=== PATIENT | female | born 1935 | race Hispanic/Latino ===

== ENCOUNTER → 2018-08-22 | Outpatient (CLI) | payer MEDICARE ==
[~2018-08-22] MED LIST: BENZ-17 PO; CELE-84 PO; DILT240C3 PO; LEVO500T89 PO; LOSA50TA64 PO; OMEP20CA10 PO; OSEL75 PO; POTA10TA14 PO; SIMV10TA6 PO
== END | disposition home or self-care (01) ==
LOC: SHCH 13:03
PROVIDERS: ATTEND Internal Medicine Cardiovascular Disease
DX: I11.9 Hypertensive heart disease without heart failure (principal); I35.8 Other nonrheumatic aortic valve disorders; R07.9 Chest pain, unspecified; E78.2 Mixed hyperlipidemia
CPT/HCPCS: 71046; 93306

== ENCOUNTER → 2018-08-24 | Outpatient (CLI) | payer MEDICARE ==
[~2018-08-24] VITALS: Ht 157.5 cm; Wt 55.3 kg
[~2018-08-24] MED LIST changes: +REGADENOSON 0.4 MG/5 ML PF SYG IVP ONE; +REGADENOSON 0.4 MG/5 ML PF SYG IVP SCH
== END | disposition home or self-care (01) ==
LOC: SHCH 08:43
PROVIDERS: ATTEND Internal Medicine Cardiovascular Disease
DX: E78.2 Mixed hyperlipidemia (principal); I51.0 Cardiac septal defect, acquired
CPT/HCPCS: 78452; 93017; 96374; A9500 ×2; J2785

== ENCOUNTER 2018-08-26 22:25 | Emergency (ER) | payer MEDICARE ==
[~2018-08-26 22:25] MED LIST changes: -REGADENOSON 0.4 MG/5 ML PF SYG IVP ONE; -REGADENOSON 0.4 MG/5 ML PF SYG IVP SCH
[2018-08-26 23:08] LABS: BASOPHILS % (AUTO) 0.5 % (0.0-5.0); EOSINOPHILS % (AUTO) 2.7 % (0.0-8.0); HEMATOCRIT 44.7 % (36-48); LYMPHOCYTES % (AUTO) 23.9 % (21.0-51.0); MEAN CORPUSCULAR HEMOGLOBIN 29.7 pg (27.0-33.0); MEAN CORPUSCULAR HGB CONC 33.3 g/dL (32.0-36.0); MEAN CORPUSCULAR VOLUME 89.2 fL (79-99); MONOCYTES % (AUTO) 9.7 % (3.0-13.0); NEUTROPHILS % (AUTO) 63.2 % (40.0-77.0); NUCLEATED RED BLOOD CELLS 0.1 % (0.0-0.19); PLATELET COUNT (AUTO) 213 K/uL (130-400); RED BLOOD CELL COUNT(AUTO) 5.01 MIL/uL (4.00-5.50); RED CELL DISTRIBUTION WIDTH 13.3 % (11.0-15.5); WHITE BLOOD COUNT (AUTO) 6.7 K/uL (4.8-10.8)
[2018-08-26 23:10] LABS: CREATININE 0.7 mg/dL (0.5-1.5); POTASSIUM 3.9 mmol/L (3.5-5.1)
[2018-08-26] MEDS ORDERED: LIDOCAINE HCL 2% JELLY 5 ML ONE (23:13)
[2018-08-26 23:15] LABS: ALBUMIN 3.2 g/dL (3.5-5.0); BILIRUBIN,TOTAL 0.2 mg/dL (0.2-1.0); TOTAL PROTEIN, SERUM 6.5 g/dL (6.0-8.3)
[2018-08-26 23:27] LABS: INR 0.89 (0.85-1.15); PARTIAL THROMBOPLASTIN TIME 22.6 SEC (26.3-35.5); PROTHROMBIN TIME 9.4 SEC (9.6-11.6)
[2018-08-26 23:43] LABS: APPEARANCE,URINE Clear (CLEAR); BILIRUBIN,URINE Negative (NEGATIVE); COLOR,URINE Yellow (YELLOW); GLUCOSE, URINE (UA) Negative (NEGATIVE); KETONES,URINE Negative (NEGATIVE); LEUKOCYTE ESTERASE ,URINE Negative (NEGATIVE); NITRATE,URINE Negative (NEGATIVE); OCCULT BLOOD,URINE Negative (NEGATIVE); PROTEIN,URINE Negative (NEGATIVE)
== END 2018-08-27 00:15 | disposition home or self-care (01) ==
LOC: EDH 22:25
DX: S00.03XA Contusion of scalp, initial encounter (principal); J45.909 Unspecified asthma, uncomplicated; I10 Essential (primary) hypertension; E78.5 Hyperlipidemia, unspecified; W18.39XA Other fall on same level, initial encounter; Y93.01 Activity, walking, marching and hiking; Y92.89 Other specified places as the place of occurrence of the external cause; Y99.8 Other external cause status
CPT/HCPCS: 36415; 70450; 72125; 80053; 81003; 82550; 84484; 85025; 85610; 85730

== ENCOUNTER 2018-09-25 07:08 | Day surgery (SDC) | payer MEDICARE ==
[2018-09-24 11:21] LABS: BASOPHILS % (AUTO) 0.5 % (0.0-5.0); HEMATOCRIT 45.2 % (36-48); LYMPHOCYTES % (AUTO) 35.2 % (21.0-51.0); MEAN CORPUSCULAR HEMOGLOBIN 29.6 pg (27.0-33.0); MEAN CORPUSCULAR VOLUME 89.8 fL (79-99); MONOCYTES % (AUTO) 11.5 % (3.0-13.0); NEUTROPHILS % (AUTO) 48.8 % (40.0-77.0); PLATELET COUNT (AUTO) 211 K/uL (130-400); RED BLOOD CELL COUNT(AUTO) 5.03 MIL/uL (4.00-5.50); RED CELL DISTRIBUTION WIDTH 13.5 % (11.0-15.5); WHITE BLOOD COUNT (AUTO) 4.8 K/uL (4.8-10.8)
[2018-09-24 11:25] LABS: APPEARANCE,URINE CLEAR (CLEAR); BILIRUBIN,URINE NEGATIVE (NEGATIVE); COLOR,URINE YELLOW (YELLOW); GLUCOSE, URINE (UA) NEGATIVE (NEGATIVE); KETONES,URINE 5 mg/dL (NEGATIVE); LEUKOCYTE ESTERASE ,URINE MODERATE (NEGATIVE); NITRATE,URINE NEGATIVE (NEGATIVE); OCCULT BLOOD,URINE NEGATIVE (NEGATIVE); PROTEIN,URINE NEGATIVE (NEGATIVE)
[2018-09-24 11:30] VITALS: BP 165/73
[2018-09-24 11:36] LABS: BACTERIA,URINE Few /HPF (None Seen); RBC,URINE 0-1 /HPF (0-1); SQUAMOUS EPITHELIAL CELL,UR 0-2 /HPF (0-2)
[2018-09-24 11:37] LABS: CREATININE 0.7 mg/dL (0.5-1.5); POTASSIUM 4.3 mmol/L (3.5-5.1)
[2018-09-24 11:41] LABS: INR 0.91 (0.85-1.15); PROTHROMBIN TIME 9.6 SEC (9.6-11.6)
--- NOTE | 2018-09-24 13:12 | NUR ---
LABS FAXED AND REPORTED ABNORMAL UA TO DR. AMIRAH MERCADO ASST. SHE WILL INFORM DR. MACARIO.
--- NOTE | 2018-09-24 16:46 | NUR ---
ALBERTO KONG LVN ON PHONE. PER DR. MACARIO, PROCEED WITH PLANNED PROCEDURE. NO ORDERS RECEIVED.
[~2018-09-25] VITALS: Ht 152.4 cm; Wt 54.4 kg
[2018-09-25] VITALS (12 sets, daily range): BP systolic 126–173; BP diastolic 48–76
[~2018-09-25 07:08] MED LIST changes: +AMLO5TAB9 PO; +ASPI-555 PO; +ATOR20TA65 PO; -BENZ-17 PO; -DILT240C3 PO; -LEVO500T89 PO; +METO-408 PO; +OMEP-50 PO; -OMEP20CA10 PO; -OSEL75 PO; +POTA10CA44 PO; -POTA10TA14 PO; -SIMV10TA6 PO
[2018-09-25] MEDS ORDERED: SODIUM CHLORIDE 0.9% 1000ML 1,000 ML IV SCH ×2 (08:00→13:18)
[2018-09-25] MEDS ORDERED: HEPARIN SODIUM 1000UNIT/ML 10ML VIAL ONE (12:11)
[2018-09-25] MEDS ORDERED: VERAPAMIL HCL 2.5 MG/ML VIAL ONE (12:11)
[2018-09-25] MEDS ORDERED: IOHEXOL 350 MG/ML 100ML INFUS..BTL IV ONE (12:11)
[2018-09-25] MEDS ORDERED: NITROGLYCERIN 5 MG/ML 10 ML VIAL IV ONE (12:11)
[2018-09-25] MEDS ORDERED: LIDOCAINE HCL 2% 20ML ONE (12:11)
[2018-09-25] MEDS ORDERED: IOHEXOL-350 50ML VIAL IV ONE ×2 (12:11→13:07)
[2018-09-25] MEDS ORDERED: MIDAZOLAM HCL 1 MG/ML 2ML VIAL ONE (12:49)
[2018-09-25] MEDS ORDERED: FENTANYL CITRATE PF 50 MCG/1 ML 2ML VIAL ONE (12:49)
--- NOTE | 2018-09-25 13:40 | NUR ---
PT BACK FROM [employer], PT WITH TR BAND TO RIGHT RADIAL CATH SITE, NO SIGNS OF BLEEDING, PULSE TO RIGHT RADIAL GOOD, WITH GOOD PERFUSION TO FINGERS S ANY EVIDENCE OF BLEEDING. PULSE OX MOVED TO RIGHT INDEX FINGER. PT RESTING COMFORTABLY S ANY SIGNS OF DISTRESS.
--- NOTE | 2018-09-25 14:40 | NUR ---
AUNDREA PRESSLEY IN TO SPEAK WITH PT AND FAMILY. ORDERS RECEIVED FROM AUNDREA PRESSLEY TO ADVANCE PT TO HEART HEALTH DIET TOLERATED.
--- NOTE | 2018-09-25 17:40 | NUR ---
PT DISCHARGED HOME, TOLERATING SOLID FOOD/FLUIDS WELL, VOIDED GOOD AMOUNT PRIOR TO DISCHARGE. PT DENIES ANY SEVERE PAIN, NAUSEA, DIZZINESS. PRESCRIPTIONS X 2 GIVEN TO DAUGHTER. DAUGHTERS AND PT REMINDED OF ROUTINE AND EMERGENCY CARE OF RIGHT RADIAL CATH SITE. PT AND FAMILY VERBALIZED UNDERSTANDING. DRESSING TO RIGHT RADIAL REMAINS DRY, CLEAN, AND INTACT S REDNESS/EDEMA, C EVIDENCE OF GOOD CIRCULATION TO FINGERS. PT AND FAMILY DENY ANY FURTHER QUESTIONS AT THIS TIME.
== END 2018-09-25 17:45 | disposition home or self-care (01) ==
LOC: DAH 07:08
PROVIDERS: ATTEND Internal Medicine Cardiovascular Disease
DX: I25.10 Atherosclerotic heart disease of native coronary artery without angina pectoris (principal); I21.3 ST elevation (STEMI) myocardial infarction of unspecified site; I44.7 Left bundle-branch block, unspecified; E78.5 Hyperlipidemia, unspecified; M06.9 Rheumatoid arthritis, unspecified; F03.90 Unspecified dementia, unspecified severity, without behavioral disturbance, psychotic disturbance, mood disturbance, and anxiety; I11.9 Hypertensive heart disease without heart failure; Z79.82 Long term (current) use of aspirin; Z98.890 Other specified postprocedural states; Z79.899 Other long term (current) drug therapy
CPT/HCPCS: 36415; 71045; 80048; 81001; 85025; 85610; 85730; 93005; 93458; A4606; C1769; C1894; J1644 ×2; J2250; J3010; J3490 ×3; J7030; Q9965; Q9967 ×2; 99156; 99157